=== PATIENT | female | born 1950 | race Caucasian/White ===

== ENCOUNTER 2016-11-03 16:53 | Emergency (ER) | payer MEDICARE ==
[2016-11-03 17:40] VITALS: BP 157/88
--- NOTE | 2016-11-03 17:50 | UC ---
Upper Extremity HPI - HPI Summary HPI Summary: atraumatic left shoulder pain. prior hx of left shoulder surgery. it hurts to lift arm and to turn head to the left. Non pleuritic and no more pain with cough. No sob or cough. no fever. some mild tingling left hand intermittent. - History of Current Complaint Chief Complaint: UCUpperExtremity Stated Complaint: LEFT SHOULDER PAIN Time Seen by Provider: 11/03/16 17:34 Hx Obtained From: Patient, Family/Ceo & Board Director ?: No Onset/Duration: Gradual Onset, Lasting Days Severity Initially: Moderate Severity Currently: Severe Location Of Pain: Is Diffuse - left posterior shoulder and left neck. Character: Aching Aggravating Factor(s): Movement, Lifting, Internal/External Rotation, Abduction Alleviating Factor(s): Elevation Associated Signs And Symptoms: Positive: Negative PMH/Surg Hx/FS Hx/Imm Hx Previously Healthy: No - DM, HTN. prior left shoulder surgery. - Surgical History Surgical History: Yes - left shoulder. - Family History Known Family History: Positive: Other - no related fh. - Social History Occupation: Retired Alcohol Use: None Substance Use Type: None, Other Smoking Status (MU): Unknown if Ever Smoked Review of Systems Musculoskeletal: Arthralgia All Other Systems Reviewed And Are Negative: Yes Physical Exam Triage Information Reviewed: Yes Appearance: Well-Appearing, No Pain Distress - no pain at rest. obvious distress with movemento f the left arm., Well-Nourished Vital Signs: Initial Vital Signs Temp 98.6 F 11/03/16 17:29 Pulse 86 11/03/16 17:29 Resp 18 11/03/16 17:29 BP 157/88 11/03/16 17:29 Pulse Ox 99 11/03/16 17:29 Vital Signs Reviewed: Yes Eye Exam: Normal ENT Exam: Normal Neck exam: Normal Neck: Positive: Supple, Nontender, No Lymphadenopathy Respiratory Exam: Normal Cardiovascular Exam: Normal Abdominal Exam: Normal Musculoskeletal Exam: Other - there is tenderness along the posterior scapula. there is pain with forced left neck rotation. there is still full rom of the neck. there is pain with forced lateral abduction and with empty can. Neurological Exam: Normal - reflexes and strenght intact and symmetric in the eric upper extremeties. Psychological Exam: Normal Skin Exam: Normal Upper Extremity Course/Dx - Differential Dx/Diagnosis Differential Diagnosis/HQI/PQRI: Arthritis, Bursitis, Contusion, Fracture (Open) , Fracture (Closed), Hematoma, Laceration, Localized Burn, Osteomyelitis, Septic Arthritis, Strain, Sprain Provider Diagnoses: left shoulder pain. Discharge - Discharge Plan Condition: Good Disposition: HOME Prescriptions: traMADol TAB* [Ultram*] 50 mg PO Q6HR PRN #20 tab MDD 3 PRN Reason: Pain Patient Education Materials: Arthralgia (ED), Swollen Joint (ED), Shoulder Pain (ED) Additional Instructions: follow up with your doctors in [place] in the next week.
== END 2016-11-03 18:07 | disposition home or self-care (01) ==
LOC: UCCORT 16:53
DX: M25.512 Pain in left shoulder (principal)
CPT/HCPCS: 93005; 99203; G0463